=== PATIENT | male | born 1935 | race Caucasian/White ===

== ENCOUNTER → 2019-02-27 | Day surgery (SDC) | payer MEDICARE ==
[~2019-02-27] MED LIST: Bupivacaine 0.5% 30 ML SDV ONE; Lactated Ringers 1,000 ML IV SCH; Lidocaine 0.5% 50 ML SDV ONE; Midazolam 1 MG/ML 2 ML SDV ONE; Nozin Nasal Sanitizer NASBOTH ONE; Propofol 200 MG/20 ML SDV ONE; fentaNYL 100 MCG/2 ML SDV ONE
--- NOTE | 2019-03-04 08:00 | OR ---
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 PROCEDURE: Release of A1 taryn, right 4th finger, trigger finger release. ANESTHESIA: Local block with sedation. INDICATIONS: Mr. Zeng is a very pleasant 83-year-old gentleman with a history of progressive pain and locking of the right 4th finger. Most recently, the finger has been locking into a flexed position routinely. He has failed conservative treatment with injection, phillip taping, etc. He now presents for release of A1 taryn. Risks, benefits, and potential complications of the procedure were discussed. PROCEDURE IN DETAIL: The patient was placed supine and prior to prep, the area over the 4th metacarpal head and A1 taryn was infiltrated with 0.5% Marcaine without epinephrine. Right hand and wrist were then prepped and draped in a sterile fashion. A transverse incision was made in the flexion crease overlying the 4th finger. This was carried down through the subcutaneous tissues. Blunt dissection was carried down to the flexor tendons. The A1 taryn was visualized and divided with the tenotomy scissor. Division was confirmed proximally and distally. No significant pathology of the flexor tendon was noted other than some mild fusiform swelling in the region just proximal to the taryn. The finger was taken through full range of motion. No other abnormalities were identified. This was then irrigated and skin was closed with 3-0 nylon in interrupted mattress fashion. A sterile dressing was then applied. The patient tolerated the procedure very well. There were no complications. He was taken from the operating room in stable condition. Ez Sarabia MD /[id number]
== END ==
LOC: JP.SDS 06:57
PROVIDERS: ATTEND Specialist
DX: M65.341 Trigger finger, right ring finger (principal); I48.0 Paroxysmal atrial fibrillation; K21.9 Gastro-esophageal reflux disease without esophagitis; N18.3 Chronic kidney disease, stage 3 (moderate); N40.1 Benign prostatic hyperplasia with lower urinary tract symptoms; R35.0 Frequency of micturition; Z79.82 Long term (current) use of aspirin; Z79.01 Long term (current) use of anticoagulants; Z79.899 Other long term (current) drug therapy
CPT/HCPCS: 26055; 36415; 80048; 85027; A9270; J2001; J2250; J2704; J3010; J3490; J7120

== ENCOUNTER 2022-02-24 06:22 | Day surgery (SDC) | payer BC, MEDICARE ==
[2022-02-24] MEDS ORDERED: Sodium Chloride 0.9% 10 ML Syringe FLUSH PRN (07:00)
== END 2022-02-24 08:22 | disposition home or self-care (01) ==
LOC: JP.SDS 06:22
PROVIDERS: ATTEND Ophthalmology
DX: H25.11 Age-related nuclear cataract, right eye (principal); J45.909 Unspecified asthma, uncomplicated; I48.91 Unspecified atrial fibrillation; K21.9 Gastro-esophageal reflux disease without esophagitis; N18.9 Chronic kidney disease, unspecified; Z87.891 Personal history of nicotine dependence
CPT/HCPCS: J3490; V2632

== ENCOUNTER 2022-03-10 06:51 | Day surgery (SDC) | payer MEDICARE ==
[2022-03-10] MEDS ORDERED: Sodium Chloride 0.9% 10 ML Syringe FLUSH PRN (08:00)
== END 2022-03-10 08:55 | disposition home or self-care (01) ==
LOC: JP.SDS 06:51
PROVIDERS: ATTEND Ophthalmology
DX: H25.12 Age-related nuclear cataract, left eye (principal)
CPT/HCPCS: 66984; J3490

== ENCOUNTER 2022-05-18 15:11 | Emergency (ER) | payer MEDICARE ==
[2022-05-18] MEDS ORDERED: Iopamidol 612 MG/ML 100 ML Bottle IV PRN (17:23)
[2022-05-18] MEDS ORDERED: Sodium Chloride 0.9% 10 ML SDV FLUSH ONE (17:23)
[2022-05-18] MEDS ORDERED: Sodium Chloride 0.9% 100 ML IV SCH (17:30)
== END 2022-05-18 21:02 ==
LOC: JP.ED 15:11
DX: R31.0 Gross hematuria (principal); I48.91 Unspecified atrial fibrillation; I10 Essential (primary) hypertension; N40.0 Benign prostatic hyperplasia without lower urinary tract symptoms; Z86.718 Personal history of other venous thrombosis and embolism; Z79.01 Long term (current) use of anticoagulants; Z79.899 Other long term (current) drug therapy; Z87.891 Personal history of nicotine dependence; Z20.822 Contact with and (suspected) exposure to COVID-19
CPT/HCPCS: 36415; 74178; 81001; 82565; 85025; 85610; 96372; 99284; 99285; J3430; J3490; Q9967; U0002

== ENCOUNTER 2025-02-14 16:16 | Emergency (ER) | payer MEDICARE ==
[2025-02-14 19:26] LABS: BASOPHILS PERCENT AUTO 0.1 % (0.1-1.3); EOSINOPHILS ABSOLUTE AUTO 0.06 K/uL (0.00-0.40); EOSINOPHILS PERCENT AUTO 0.8 % (0.0-5.4); IMMATURE GRAN ABSOLUTE AUTO 0.04 K/uL (0.00-0.23); IMMATURE GRAN PERCENT AUTO 0.6 % (0.0-0.7); LYMPHOCYTES ABSOLUTE AUTO 1.89 K/uL (0.8-3.3); LYMPHOCYTES PERCENT AUTO 26.4 % (11.4-47.7); MONOCYTES ABSOLUTE AUTO 0.81 K/uL (0.20-0.90); MONOCYTES PERCENT AUTO 11.3 % (3.3-12.6); NEUTROPHILS ABSOLUTE AUTO 4.34 K/uL (1.0-7.6); NEUTROPHILS PERCENT AUTO 60.8 % (40.0-78.1); PLATELET COUNT,PLT 164 K/uL (130-375); RED BLOOD CELL COUNT 4.14 M/uL (4.14-5.76); WHITE BLOOD CELL COUNT,WBC 7.2 K/uL (3.2-11.0)
[2025-02-14 19:29] LABS: BASOPHILS ABSOLUTE AUTO 0.01 K/uL (0.00-0.10)
[2025-02-14 19:50] LABS: A/G RATIO 1.1 (1.2-2.2); ALANINE AMINOTRANSFERASE,ALT 32 U/L (12-78); ASPARTATE AMNIOTRANSFERASE,AST 17 U/L (15-37); BILIRUBIN TOTAL 0.6 mg/dL (0.2-1.0); BLOOD UREA NITROGEN,BUN 26 mg/dL (7-18); CARBON DIOXIDE,CO2 29 mmol/L (21-32); CHLORIDE,CL 105 mmol/L (100-108); CREATININE 1.4 mg/dL (0.8-1.3); EST CRCL DRUG DOSING (CG) 36.47 mL/min; ESTIMATED GFR 48 mL/min (>60); GLUCOSE RANDOM 91 mg/dL (74-106); POTASSIUM,K 4.8 mmol/L (3.6-5.2); PROTEIN TOTAL,TP 6.6 g/dL (6.4-8.2); SODIUM,NA 140 mmol/L (140-148); TROPONIN I HIGH SENSITIVITY 10.6 pg/mL (<=60.3)
[2025-02-14 20:08] LABS: APPEARANCE,URINE CLEAR (CLEAR); GLUCOSE,URINE NEGATIVE (NEGATIVE); OCCULT BLOOD,URINE NEGATIVE (NEGATIVE)
[2025-02-14 20:18] LABS: SQUAMOUS EPITHELIAL CELLS,UR RARE /HPF; UROTHELIAL CELLS,URINE NOT SEEN /HPF
== END 2025-02-14 21:19 | disposition home or self-care (01) ==
LOC: JP.ED 16:16
DX: R55 Syncope and collapse (principal); R00.1 Bradycardia, unspecified; I10 Essential (primary) hypertension; Z79.01 Long term (current) use of anticoagulants; Z79.899 Other long term (current) drug therapy; Z87.891 Personal history of nicotine dependence
CPT/HCPCS: 36415; 70450; 80053; 81001; 84484; 85025; 99285